=== PATIENT | male | born 1975 | race Caucasian/White ===

== ENCOUNTER 2018-01-31 22:27 | Inpatient (IN) | payer BC ==
[~2018-01-31] VITALS: Ht 167.6 cm; Wt 67.7 kg
[2018-01-31 22:49] VITALS: Ht 167.6 cm; Wt 67.7 kg
[2018-02-01 01:39] LABS: BASOPHIL % 0.2 % (0-2); PLATELET COUNT 241 x10^3mcL (130-400); RED CELL DISTRIBUTION WIDTH 13.6 % (11.5-14.5)
[2018-02-01 01:43] LABS: CARBON DIOXIDE 29.8 mmol/L (21-32); CHLORIDE SERUM 104 mmol/L (98-107); CREATININE SERUM 0.9 mg/dL (0.7-1.3); GFR1 > 60 mL/min; GLUCOSE SERUM 164 mg/dL (74-106); SODIUM SERUM 141 mmol/L (136-145)
[2018-02-01 01:48] LABS: ALKALINE PHOSPHATASE 70 U/L (46-116); ALT/SGPT 35 U/L (16-63); AST/SGOT 19 U/L (15-37); BILIRUBIN TOTAL 0.33 mg/dL (0.20-1.00); TOTAL PROTEIN, SERUM 8.1 g/dL (6.4-8.2)
[2018-02-01 01:49] LABS: MAGNESIUM 1.8 mg/dL (1.8-2.4); PHOSPHOROUS 3.3 mg/dL (2.5-4.9)
[2018-02-01 02:08] LABS: FREE T4 0.86 ng/dL (0.76-1.46); T4(THYROXINE) 5.6 ug/dL (4.7-13.3)
[2018-02-01 02:17] LABS: CHOLESTEROL/HDL RATIO 4.2
[2018-02-01 02:25] VITALS: BP 120/82
[2018-02-01 02:52] LABS: T3 TOTAL 0.78 ng/mL
[2018-02-01 05:08] VITALS: BP 115/80
[2018-02-01 05:12] LABS: microscopic required? NO
[2018-02-01 05:40] LABS: urine erythrocyte NEGATIVE (NEGATIVE)
[2018-02-01 05:54] LABS: AMPHETAMINE QUAL UR NONE DETECTED (See below)
[2018-02-01 10:24] VITALS: BP 132/88
[2018-02-01] MEDS ORDERED: PRILOSEC OTC20 M1 PO (13:53)
[2018-02-01 14:01] VITALS: BP 132/88
== END 2018-02-01 15:45 | disposition home or self-care (01) | DRG 395 ==
LOC: ED 22:27 → MU 02-01 01:41
PROVIDERS: Emergency Medicine; Family Medicine; Internal Medicine Gastroenterology
PROC: 0DC58ZZ Extirpation of Matter from Esophagus, Via Natural or Artificial Opening Endoscopic (ICD-10-PCS; principal; 2018-02-01 08:30)
PROC: 0DB58ZX Excision of Esophagus, Via Natural or Artificial Opening Endoscopic, Diagnostic (ICD-10-PCS; 2018-02-01 08:30)
DX: T18.128A Food in esophagus causing other injury, initial encounter (principal); K21.0 Gastro-esophageal reflux disease with esophagitis; K44.9 Diaphragmatic hernia without obstruction or gangrene; K22.2 Esophageal obstruction; D72.1 Eosinophilia; E78.5 Hyperlipidemia, unspecified; F43.9 Reaction to severe stress, unspecified; X58.XXXA Exposure to other specified factors, initial encounter; Y93.89 Activity, other specified; Y92.098 Other place in other non-institutional residence as the place of occurrence of the external cause; Y99.8 Other external cause status
CPT/HCPCS: 43235; 84439; J1200; J1610; J2250; J2310; J3010; J3490; J7030; Q0092